=== PATIENT | female | born 1950 | race Caucasian/White ===

== ENCOUNTER 2018-04-30 14:43 | Observation (INO) ==
[2018-04-30] MEDS ORDERED: Aspirin 81 MG TAB.CHEW PO ONE (14:48)
--- NOTE | 2018-04-30 14:54 | Emergency Department Note ---
Disposition Clinical Impression: Hx of breast cancer, Hypocalcemia Chest pain Qualifiers: Chest pain type: unspecified Qualified Code(s): R07.9 - Chest pain, unspecified Disposition: Admitted As Inpatient Condition: Good Referrals: Dane Ybarra [Primary Care Provider] - Forms: ED Satisfaction Letter Time of Disposition: 17:10 General Adult HPI - General Stated complaint: chest pain Time Seen by Provider: 04/30/18 14:47 Source: patient, EMS Mode of arrival: EMS Limitations: no limitations Nursing Notes Reviewed: Yes Vital Signs Reviewed: Yes - History of Present Illness HPI Narrative: Patient is a 67-year-old female that presents the emergency department for chest pain. Patient states that it began while she was sitting in a car waiting for her to be seen at the urgent care at [place]. Patient states that she gets this from time to time but today seemed worse than normal. Patient states that the pain was sharp in the right chest underneath her right breast. Patient denied any radiation of the pain. Patient states that she did not have any nausea or diaphoresis. Patient states that she had increased pain when she would take a breath but does not have any associated shortness of breath at this time. Patient states that yesterday she was diagnosed with a pulmonary nodule in the right lung does have a history of lung cancer. He states that she has been having a mild cough without any sputum production. Patient denies being febrile. Patient states that she has never had a cardiac catheterization or any heart issues in the past but has had a stress test many years ago but is unclear what the results of that stress test were. - Related Data Allergies Allergy/AdvReac Type Severity Reaction Status Date / Time adhesive tape Allergy Rash Verified 04/30/18 15:00 Iodinated Contrast- Oral and Allergy Rash Verified 04/30/18 15:00 IV Dye All systems ED: reviewed and negative except as stated. Constitutional: Denies: fever Cardiovascular: Reports: chest pain Respiratory: Reports: cough. Denies: dyspnea, sputum production Gastrointestinal: Denies: abdominal pain, nausea, vomiting Physical Exam - General Limitations: no limitations General appearance: alert, in no apparent distress - Head Head exam: atraumatic, normocephalic - Eye Eye exam: Present: normal appearance, EOMI - Neck Neck exam: Present: normal inspection, full ROM, trachea midline - Respiratory Respiratory exam: Present: normal lung sounds bilaterally. Absent: respiratory distress, wheezes - Cardiovascular Cardiovascular exam: Present: regular rate, normal rhythm, normal heart sounds, +S1, +S2 - Abdominal Exam Abdominal exam: Present: soft, Non-Tender, normal bowel sounds - Neurological Exam Neurological exam: Present: alert, oriented X3 - Psychiatric Psychiatric exam: Present: normal affect, normal mood - Skin Skin exam: Present: warm, dry, intact Course Vital Signs Temperature 97.9 F 04/30/18 14:46 Pulse Rate 68 04/30/18 14:46 Respiratory Rate 17 04/30/18 14:46 Blood Pressure 139/86 04/30/18 14:46 O2 Sat by Pulse Oximetry 100 04/30/18 14:46 Temperature 97.9 F 04/30/18 14:46 Pulse Rate 63 04/30/18 14:51 Respiratory Rate 17 04/30/18 14:51 Blood Pressure 139/86 04/30/18 14:51 O2 Sat by Pulse Oximetry 98 04/30/18 14:51 Oxygen Delivery Oxygen Delivery Room Air Medical Decision Making - [facility] Narrative Medical decision making narrative: Due the patient's into the emergency department with reports of chest pain was sudden in onset to the right side of the chest and is pleuritic there is concern for possible pulmonary or cardiac involvement. Basic laboratory testing chest x-ray and EKG will be obtained. Patient's laboratory testing is relatively unremarkable. Patient did have a mildly low calcium of 7.5. Patient be given 1 g of calcium gluconate. The remainder of her laboratory testing is relatively unremarkable. Her chest x-ray did not show any acute croup ulnar process. EKG did not show any acute ischemic changes. Patient did receive 324 mg of aspirin here in the emergency department and was chest pain-free upon her arrival. Patient has no evidence of a STEMI or elevation in his troponin to suggest acute coronary syndrome however due to the patient's acute onset of her symptoms troponin would likely not be elevated at this time so she will need to be admitted to the hospital for ACS rule out. Patient has been stable throughout here time here in the emergency department and has not had any signs of distress. Patient will admitted to the hospital at this time. I called and spoke with the admitted hospitalist Dr. Martins and he has accepted the patient to their service. - Medical Records Medical records reviewed: Yes I reviewed the patient's medical records. - Lab Data Lab results reviewed: Yes I reviewed the patient's lab results. Result diagrams: 04/30/18 15:06 04/30/18 15:06 Lab Results 04/30/18 04/30/18 04/30/18 Range/Units 15:06 15:06 15:06 WBC 5.3 (4.3-11.1) K/mcL RBC 4.57 (3.82-4.97) M/mcL Hgb 13.7 (11.5-15.4) g/dL Hct 42.5 (35.3-44.9) % MCV 93.0 (83.0-100.0) fL MCH 30.0 (28.0-33.3) pg MCHC 32.2 (31.6-35.5) g/dL RDW 13.2 (11.5-14.5) % Plt Count 142 (140-400) K/mcL MPV 12.3 (9.4-12.4) fL Immature Gran % 0.2 (0-4) % Seg Neutrophils % 57.4 % Lymphocytes % 26.9 % Monocytes % 8.7 % Eosinophils % 5.7 % Basophils % 1.1 % Neutrophils # 3.0 (1.6-8.9) K/mcL Lymphocytes # 1.4 (0.6-4.6) K/mcL Monocytes # 0.5 (0.0-1.3) K/mcL Eosinophils # 0.3 (0.0-0.6) K/mcL Basophils # 0.1 (0.0-0.2) K/mcL PT 10.6 (9.4-12.1) Seconds INR 0.9 APTT 31.4 (26.0-36.0) Seconds D-Dimer 490 (0-500) ng/mLFEU Sodium (136-145) mEq/L Potassium (3.5-5.1) mEq/L Chloride (98-107) mEq/L Carbon Dioxide (23-29) mEq/L BUN (8-23) mg/dL Creatinine (0.60-1.20) mg/dL Est GFR ( Amer) (> 60) Est GFR (Non-Af Amer) (> 60) BUN/Creatinine Ratio (6-26) Glucose (70-105) mg/dL Calculated Osmolality (280-300) Calcium (8.6-10.3) mg/dL Troponin I (< 0.04) ng/mL B-Natriuretic Peptide 98 (Less than 100) pg/mL 04/30/18 Range/Units 15:06 WBC (4.3-11.1) K/mcL RBC (3.82-4.97) M/mcL Hgb (11.5-15.4) g/dL Hct (35.3-44.9) % MCV (83.0-100.0) fL MCH (28.0-33.3) pg MCHC (31.6-35.5) g/dL RDW (11.5-14.5) % Plt Count (140-400) K/mcL MPV (9.4-12.4) fL Immature Gran % (0-4) % Seg Neutrophils % % Lymphocytes % % Monocytes % % Eosinophils % % Basophils % % Neutrophils # (1.6-8.9) K/mcL Lymphocytes # (0.6-4.6) K/mcL Monocytes # (0.0-1.3) K/mcL Eosinophils # (0.0-0.6) K/mcL Basophils # (0.0-0.2) K/mcL PT (9.4-12.1) Seconds INR APTT (26.0-36.0) Seconds D-Dimer (0-500) ng/mLFEU Sodium 141 (136-145) mEq/L Potassium 4.4 (3.5-5.1) mEq/L Chloride 109 H (98-107) mEq/L Carbon Dioxide 22 L (23-29) mEq/L BUN 21 (8-23) mg/dL Creatinine 0.88 (0.60-1.20) mg/dL Est GFR ( Amer) > 60 (> 60) Est GFR (Non-Af Amer) > 60 (> 60) BUN/Creatinine Ratio 24 (6-26) Glucose 90 (70-105) mg/dL Calculated Osmolality 295 (280-300) Calcium 7.5 L (8.6-10.3) mg/dL Troponin I < 0.03 (< 0.04) ng/mL B-Natriuretic Peptide (Less than 100) pg/mL - Radiology Data Radiology results reviewed: Yes I reviewed the patient's radiology results. Chest X-Ray 04/30/18 14:48 IMPRESSION: No acute cardiopulmonary findings. D/ / Jarvis Francois / Jarvis Francois Interpreting Provider: Jarvis Francois - EKG Data EKG #1 EKG attestation: Yes I reviewed and interpreted this EKG. EKG results narrative: EKG shows a sinus rhythm rate of 61 bpm, MI interval of 138, QRS duration of 89, QTC of 411. There is no evidence of STEMI on EKG. There is no previous EKG for comparison. Attestation Statement - Attestation Attestation: I, Redd Dubon DO, examined this patient [id number] and my medical decision-making was reviewed with Dr. Salvatore Grubbs, Resident Physician. I agree with the documented findings, disposition and treatment plan as described except to the extent set forth below. Please see my progress notes for details.
--- NOTE | 2018-04-30 15:43 | Emergency Department Note ---
Disposition Clinical Impression: Hx of breast cancer Chest pain Qualifiers: Chest pain type: unspecified Qualified Code(s): R07.9 - Chest pain, unspecified Disposition: Admitted As Inpatient Condition: Fair Referrals: Dane Ybarra [Advanced Practice Nurse] - Forms: ED Satisfaction Letter Time of Disposition: 17:10 General Adult HPI - General Chief complaint: ED Chest Pain Stated complaint: chest pain Time Seen by Provider: 04/30/18 14:47 Source: patient, EMS Mode of arrival: EMS Limitations: no limitations - History of Present Illness Pain Scale: 0 - Related Data Allergies Allergy/AdvReac Type Severity Reaction Status Date / Time adhesive tape Allergy Rash Verified 04/30/18 15:00 Iodinated Contrast- Oral and Allergy Rash Verified 04/30/18 15:00 IV Dye Constitutional: Denies: fever Cardiovascular: Reports: chest pain Respiratory: Reports: cough. Denies: dyspnea, sputum production Gastrointestinal: Denies: abdominal pain, nausea, vomiting Past Medical History - Past Medical History Medical history: Reports: hyperlipidemia, hypertension Psychiatric history: Reports: anxiety - Social History Smoking Status: Never smoker Smokeless Tobacco Status: No Alcohol use: Reports: none Drug use: Reports: none Physical Exam - General Limitations: no limitations General appearance: alert, in no apparent distress Course Vital Signs Temperature 97.9 F 04/30/18 14:46 Pulse Rate 68 04/30/18 14:46 Respiratory Rate 17 04/30/18 14:46 Blood Pressure 139/86 04/30/18 14:46 O2 Sat by Pulse Oximetry 100 04/30/18 14:46 Temperature 97.9 F 04/30/18 14:46 Pulse Rate 63 04/30/18 14:51 Respiratory Rate 17 04/30/18 14:51 Blood Pressure 139/86 04/30/18 14:51 O2 Sat by Pulse Oximetry 98 04/30/18 14:51 Oxygen Delivery Oxygen Delivery Room Air Medical Decision Making - Lab Data Result diagrams: 04/30/18 15:06 04/30/18 15:06 Lab Results 04/30/18 04/30/18 04/30/18 Range/Units 15:06 15:06 15:06 WBC 5.3 (4.3-11.1) K/mcL RBC 4.57 (3.82-4.97) M/mcL Hgb 13.7 (11.5-15.4) g/dL Hct 42.5 (35.3-44.9) % MCV 93.0 (83.0-100.0) fL MCH 30.0 (28.0-33.3) pg MCHC 32.2 (31.6-35.5) g/dL RDW 13.2 (11.5-14.5) % Plt Count 142 (140-400) K/mcL MPV 12.3 (9.4-12.4) fL Immature Gran % 0.2 (0-4) % Seg Neutrophils % 57.4 % Lymphocytes % 26.9 % Monocytes % 8.7 % Eosinophils % 5.7 % Basophils % 1.1 % Neutrophils # 3.0 (1.6-8.9) K/mcL Lymphocytes # 1.4 (0.6-4.6) K/mcL Monocytes # 0.5 (0.0-1.3) K/mcL Eosinophils # 0.3 (0.0-0.6) K/mcL Basophils # 0.1 (0.0-0.2) K/mcL PT 10.6 (9.4-12.1) Seconds INR 0.9 APTT 31.4 (26.0-36.0) Seconds D-Dimer 490 (0-500) ng/mLFEU Sodium (136-145) mEq/L Potassium (3.5-5.1) mEq/L Chloride (98-107) mEq/L Carbon Dioxide (23-29) mEq/L BUN (8-23) mg/dL Creatinine (0.60-1.20) mg/dL Est GFR ( Amer) (> 60) Est GFR (Non-Af Amer) (> 60) BUN/Creatinine Ratio (6-26) Glucose (70-105) mg/dL Calculated Osmolality (280-300) Calcium (8.6-10.3) mg/dL Troponin I (< 0.04) ng/mL B-Natriuretic Peptide 98 (Less than 100) pg/mL 04/30/18 Range/Units 15:06 WBC (4.3-11.1) K/mcL RBC (3.82-4.97) M/mcL Hgb (11.5-15.4) g/dL Hct (35.3-44.9) % MCV (83.0-100.0) fL MCH (28.0-33.3) pg MCHC (31.6-35.5) g/dL RDW (11.5-14.5) % Plt Count (140-400) K/mcL MPV (9.4-12.4) fL Immature Gran % (0-4) % Seg Neutrophils % % Lymphocytes % % Monocytes % % Eosinophils % % Basophils % % Neutrophils # (1.6-8.9) K/mcL Lymphocytes # (0.6-4.6) K/mcL Monocytes # (0.0-1.3) K/mcL Eosinophils # (0.0-0.6) K/mcL Basophils # (0.0-0.2) K/mcL PT (9.4-12.1) Seconds INR APTT (26.0-36.0) Seconds D-Dimer (0-500) ng/mLFEU Sodium 141 (136-145) mEq/L Potassium 4.4 (3.5-5.1) mEq/L Chloride 109 H (98-107) mEq/L Carbon Dioxide 22 L (23-29) mEq/L BUN 21 (8-23) mg/dL Creatinine 0.88 (0.60-1.20) mg/dL Est GFR ( Amer) > 60 (> 60) Est GFR (Non-Af Amer) > 60 (> 60) BUN/Creatinine Ratio 24 (6-26) Glucose 90 (70-105) mg/dL Calculated Osmolality 295 (280-300) Calcium 7.5 L (8.6-10.3) mg/dL Troponin I < 0.03 (< 0.04) ng/mL B-Natriuretic Peptide (Less than 100) pg/mL Attestation Statement - Attestation Attestation: I, Redd Dubon DO, examined this patient [id number] and my medical decision-making was reviewed with Dr. Salvatore Grubbs, Resident Physician. I agree with the documented findings, disposition and treatment plan as described except to the extent set forth below. Please see my progress notes for details. 67-year-old female seen and examined the time of arrival. Presents emergency room for the [facility] where she was seeing another patient in the hospital setting. She went down the hallway with severe chest pain. EMS was called. They transported immediately to our facility because she is not a . Patient had chest pain when EMS initially evaluated her. Without any intervention, the patient had complete resolution of her symptoms. She does have a history of breast cancer. Denies any falls trauma or injury. Denies any cardiac history. Currently denying chest pain shortness of breath headache v ision changes nausea vomiting or diarrhea here in the emergency department. Vital signs otherwise stable. Patient is alert she is oriented and speaking in full sentences. Lungs are clear heart is regular abdomen is soft nontender nondistended with no guarding no rigidity and no peritoneal symptoms at this time. Patient will have cardiac evaluation completed here today with EKG CBC chemistry troponin and BNP and d-dimer secondary to her cancer history. Chest x-ray fluids and aspirin will be given as needed. Disposition will most likely be admission secondary to the presenting symptoms and complaints. Patient is otherwise stable. She is describing no pain at this point and does not require any emergent intervention or medical management. See detailed documentation of the physical exam, medical intervention, medical decision-making and disposition in the resident physician's note. No critical care applied to the patient's treatment course at this time. 1700 Patient's d-dimer is negative. Labs are unremarkable including a troponin. Patient has not had any chest pain while here in the emergency department. Patient is otherwise clinical stable and resting comfortably in the bed. She will be admitted for ACS rule out at this time secondary to risk factors as well as presenting symptoms and pain. Patient was discussed with the hospitalist Dr. Martins. He had no other recommendations or concerns. Aspirin has been provided and the patient is otherwise in no distress. We will continue monitoring in emergency room until admission process is completed
[2018-04-30 15:50] LABS: Basophils # 0.1 K/mcL (0.0-0.2); Basophils % 1.1 %; Eosinophils # 0.3 K/mcL (0.0-0.6); Eosinophils % 5.7 %; Hematocrit 42.5 % (35.3-44.9); Hemoglobin 13.7 g/dL (11.5-15.4); Immature Granulocytes % 0.2 % (0-4); Lymphocytes # 1.4 K/mcL (0.6-4.6); Lymphocytes % 26.9 %; Mean Corpuscular HGB Conc 32.2 g/dL (31.6-35.5); Mean Platelet Volume 12.3 fL (9.4-12.4); Monocytes # 0.5 K/mcL (0.0-1.3); Monocytes % 8.7 %; Platelet Count 142 K/mcL (140-400); Red Blood Count 4.57 M/mcL (3.82-4.97); Red Cell Distribution Width 13.2 % (11.5-14.5); Segmented Neutrophils % 57.4 %
[2018-04-30 15:58] LABS: INR 0.9; Prothrombin Time 10.6 Seconds (9.4-12.1)
[2018-04-30 16:00] LABS: Activated Partial Thrombo Time 31.4 Seconds (26.0-36.0)
[2018-04-30 16:34] LABS: BUN/Creatinine Ratio 24 (6-26); Blood Urea Nitrogen 21 mg/dL (8-23); Calcium 7.5 mg/dL (8.6-10.3); Carbon Dioxide 22 mEq/L (23-29); Chloride 109 mEq/L (98-107); Glucose 90 mg/dL (70-105); Osmolality,Calculated 295 (280-300); Potassium 4.4 mEq/L (3.5-5.1); Sodium 141 mEq/L (136-145); eGFR For Non-African Americans > 60 (> 60)
[2018-04-30 16:35] LABS: Troponin I < 0.03 ng/mL (< 0.04)
[2018-04-30 17:02] LABS: Bilirubin,Urine Negative (Negative); Blood,Urine Negative (Negative); Clarity,Urine Clear (Clear); Color,Urine Yellow (Yellow); Glucose,Urine (UA) Normal (Normal); Ketones,Urine Negative (Negative); Leukocyte Esterase,Urine Negative (Negative); Nitrite,Urine Negative (Negative); PH,Urine 6.5 pH Units (5.0-8.0); Protein,Urine Trace mg/dL (Neg-Trace); Specific Gravity,Urine 1.019 (1.010-1.025); Urobilinogen,Urine Normal (Normal)
[2018-04-30 17:03] LABS: Bacteria,Urine None Seen per hpf (None-Few); Hyaline Casts,Urine None Seen per lpf (None-Few); Squamous Epithelial Cell,Urine Many per lpf (None-Few); WBC,Urine 0-3 per hpf (0-3)
[2018-04-30] MEDS ORDERED: traMADol 50 MG TABLET PO PRN (17:24)
[2018-04-30] MEDS ORDERED: Acetaminophen 325 MG TABLET PO PRN (17:24)
[2018-04-30] MEDS ORDERED: Naloxone 0.4 MG/ML INJ IVP PRN (17:24)
[2018-04-30] MEDS ORDERED: Nitroglycerin 0.4 MG TAB.SUBL SL PRN (17:26)
--- NOTE | 2018-04-30 17:31 | Internal Med History&Physical ---
Date of Encounter: 04/30/18 Time of Encounter: 17:29 Internal Medicine - H&P: HPI Admitted From: Home Plans for Post Hospital Care: Home History of present illness: Patient is a 67-year-old female that presents the emergency department for chest pain. Patient states that it began while she was sitting in a car waiting for her to be seen at the urgent care at [place]. Patient states that she gets this from time to time but today seemed worse than normal. Patient states that the pain was sharp in the right chest underneath her right breast. Patient denied any radiation of the pain. Patient states that she did not have any nausea or diaphoresis. Patient states that she had increased pain when she would take a breath but does not have any associated shortness of breath at this time. Patient states that yesterday she was diagnosed with a pulmonary nodule in the right lung does have a history of lung cancer. He states that she has been having a mild cough without any sputum production. Patient denies being febrile. Patient states that she has never had a cardiac catheterization or any heart issues in the past but had a stress test many years ago with a normal result. At the ED, patient vital signs were stable, labs were unremarkable including troponin, chest x-ray no acute findings, EKG no acute ST-T change. Patient will be admitted for observation overnight. Past Med Surg Social Fam HX - Past Medical History Medical history: hyperlipidemia, hypertension Additional medical history: Right Lung Nodule. Pre diabetes Psychiatric history: anxiety - Past Surgical History Additional surgical history: D and C,Hysterectomy - Social History Smoking Status: Never smoker Smokeless Tobacco Status: No Alcohol use: none Drug use: none Internal Medicine - H&P: Meds Allergy/AdvReac Type Severity Reaction Status Date / Time adhesive tape Allergy Rash Verified 04/30/18 15:00 Iodinated Contrast- Oral and Allergy Rash Verified 04/30/18 15:00 IV Dye All Systems PM: A 10-system review of systems was performed and is negative for pertinent findings except as documented above in the HPI. Review of systems: REVIEW OF SYSTEMS: CONSTITUTIONAL: No weight loss, fever, chills, weakness or fatigue. HEENT: Eyes: No visual loss, blurred vision, double vision or yellow sclerae. Ears, Nose, Throat: No hearing loss, sneezing, congestion, runny nose or sore throat. SKIN: No rash or itching. CARDIOVASCULAR: see HPI. RESPIRATORY: No shortness of breath, cough or sputum. GASTROINTESTINAL: No anorexia, nausea, vomiting or diarrhea. No abdominal pain or blood. GENITOURINARY: No dysuria, urgency, or frequency. NEUROLOGICAL: No headache, dizziness, syncope, paralysis, ataxia, numbness or tingling in the extremities. No change in bowel or bladder control. MUSCULOSKELETAL: No muscle, back pain, joint pain or stiffness. HEMATOLOGIC: No anemia, bleeding or bruising. LYMPHATICS: No enlarged nodes. No history of splenectomy. PSYCHIATRIC: No history of depression or anxiety. ENDOCRINOLOGIC: No reports of sweating, cold or heat intolerance. No polyuria or polydipsia. - Constitutional Vitals: Temp Pulse Resp BP Pulse Ox 97.9 F 63 17 139/86 98 04/30/18 14:46 04/30/18 14:51 04/30/18 14:51 04/30/18 14:51 04/30/18 14:51 General appearance: Present: cooperative, A&O X 3, answers questions appropriately Exam: PHYSICAL EXAMINATION: GENERAL APPEARANCE: The patient is alert, oriented and in no acute distress. HEENT: Head is normocephalic. The sinuses are nontender. Pupils are equal and reactive. The nares are patent. Oropharynx clear without lesions. NECK: Supple without lymphadenopathy. HEART: Regular rate and rhythm. LUNGS: No crackles or wheezes are heard. ABDOMEN: Soft, nontender, nondistended with good bowel sounds heard. Inguinal area is normal. EXTREMITIES: Without cyanosis, clubbing or edema. NEUROLOGICAL: Gross nonfocal. SKIN: Warm and dry without any rash. Internal Med - H&P Results - Labs CBC & Chem 7: 04/30/18 15:06 04/30/18 15:06 Labs: Short CBC 04/30/18 Range/Units 15:06 WBC 5.3 (4.3-11.1) K/mcL Hgb 13.7 (11.5-15.4) g/dL Hct 42.5 (35.3-44.9) % Plt Count 142 (140-400) K/mcL Neutrophils # 3.0 (1.6-8.9) K/mcL BMP 04/30/18 15:06 Sodium 141 Potassium 4.4 Chloride 109 H Carbon Dioxide 22 L BUN 21 Creatinine 0.88 Glucose 90 Calcium 7.5 L Cardiac Enzymes 04/30/18 Range/Units 15:06 Troponin I < 0.03 (< 0.04) ng/mL Urine 04/30/18 Range/Units 16:52 Urine Color Yellow (Yellow) Urine Clarity Clear (Clear) Urine pH 6.5 (5.0-8.0) pH Units Ur Specific [place] 1.019 (1.010-1.025) Urine Protein Trace (Neg-Trace) mg/dL Urine Glucose (UA) Normal (Normal) mg/dL - Impressions ITS Impressions Chest X-Ray 04/30/18 14:48 IMPRESSION: No acute cardiopulmonary findings. D/ / Jarvis Francois / Jarvis Francois Interpreting Provider: Jarvis Francois - Assessment and plan (1) Chest pain Current Visit: Yes Status: Acute Assessment and plan: 67 year old female with CV risk factors including HTN and obesity presented with right sided chest pain, it is exertional. No radiation, and non-pleuritic. It is non-typical chest pain, however, due to risk factors, will admit and workup for ACS. Cycle troponin, tele monitoring, EKG as needed. Stress test in am. Qualifiers: Chest pain type: unspecified Qualified Code(s): R07.9 - Chest pain, unspecified (2) HTN (hypertension) Current Visit: No Status: Chronic Assessment and plan: BP controlled, continue home meds. Qualifiers: Hypertension type: essential hypertension Qualified Code(s): I10 - Essential (primary) hypertension (3) Depression Current Visit: No Status: Chronic Assessment and plan: Mood stable, no suicidal ideation. continue home meds. Qualifiers: Depression Type: major depressive disorder Active/Remission status: remission status unspecified Qualified Code(s): F32.9 - Major depressive disorder, single episode, unspecified (4) Lung nodule Current Visit: No Status: Chronic Assessment and plan: outpatient workup, already scheduled. (5) Hx of breast cancer Current Visit: No Status: Chronic Assessment and plan: f/u as outpt. (6) DVT prophylaxis Current Visit: Yes Status: Acute Assessment and plan: heparin sq. - Time Spent With Patient Total time spent is greater than 50% in coordination of care (as documented) at patient's floor/unit and/or counseling patient: Greater than 35 minutes
[2018-04-30] MEDS: traZODone 50 MG TABLET PO SCH (20:39)
[2018-04-30] MEDS: *HR* Heparin 5,000 UNIT/ML VIAL SQ SCH (20:39)
[2018-05-01 05:04] LABS: Basophils % 0.8 %; Eosinophils # 0.3 K/mcL (0.0-0.6); Eosinophils % 5.7 %; Hematocrit 39.7 % (35.3-44.9); Hemoglobin 12.8 g/dL (11.5-15.4); Immature Granulocytes % 0.2 % (0-4); Lymphocytes # 1.8 K/mcL (0.6-4.6); Lymphocytes % 34.1 %; Mean Corpuscular HGB Conc 32.2 g/dL (31.6-35.5); Mean Corpuscular Hemoglobin 29.7 pg (28.0-33.3); Mean Corpuscular Volume 92.1 fL (83.0-100.0); Mean Platelet Volume 12.1 fL (9.4-12.4); Monocytes # 0.5 K/mcL (0.0-1.3); Neutrophils # 2.6 K/mcL (1.6-8.9); Platelet Count 118 K/mcL (140-400); Red Blood Count 4.31 M/mcL (3.82-4.97); Red Cell Distribution Width 13.1 % (11.5-14.5); Segmented Neutrophils % 49.2 %
[2018-05-01 05:27] LABS: BUN/Creatinine Ratio 22 (6-26); Blood Urea Nitrogen 21 mg/dL (8-23); Carbon Dioxide 27 mEq/L (23-29); Chloride 109 mEq/L (98-107); Chol/HDL Ratio 2.6 (0-4.9); Cholesterol 145 mg/dL (< 200); Glucose 95 mg/dL (70-105); HDL Cholesterol 56 mg/dL (40-59); LDL Cholesterol,Calculated 72 mg/dL (0-99); Osmolality,Calculated 295 (280-300); Potassium 4.1 mEq/L (3.5-5.1); Sodium 141 mEq/L (136-145); Triglycerides 83 mg/dL (< 150); eGFR For Non-African Americans 58 (> 60)
[2018-05-01] MEDS: *HR* Heparin 5,000 UNIT/ML VIAL SQ SCH ×2 (05:55→17:47)
[2018-05-01] MEDS ORDERED: Regadenoson 0.4 MG/5 ML SYRINGE IVP ONE (06:25)
[2018-05-01] MEDS ORDERED: Cholecalciferol (D-3) 1,000 UNIT TABLET PO SCH (09:00)
[2018-05-01] MEDS ORDERED: Metoprolol XL (24 HR) Succ 25 MG TAB.ER.24H PO SCH (09:00)
--- NOTE | 2018-05-01 09:27 | Internal Med Progress Note ---
Hospitalist Progress Note - Encounter Date of Encounter: 05/01/18 Time of Encounter: 09:24 - Subjective Interval History: Admitted for chest pain rule out. Currently resting comfortably in bed denies any chest pain at this time. Does not appear to be in any distress. - Exam Vitals: Temp Pulse Resp BP Pulse Ox 97.3 F L 65 16 128/76 96 05/01/18 07:13 05/01/18 07:13 05/01/18 07:13 05/01/18 07:13 05/01/18 07:13 Exam: PHYSICAL EXAMINATION: GENERAL APPEARANCE: A and O 3, NAD HEENT: Head is normocephalic. The sinuses are nontender. EOMI, PERRLA The nares are patent. Oropharynx clear without lesions. NECK: Supple without lymphadenopathy. HEART: Regular rate and rhythm, S1, S2 no murmurs rubs or gallops. LUNGS: No crackles or wheezes are heard. ABDOMEN: Soft, nontender, nondistended with good bowel sounds heard. Inguinal area is normal. EXTREMITIES: Without cyanosis, clubbing or edema. NEUROLOGICAL: Grossly nonfocal. SKIN: Warm and dry without any rash. - Assessment and Plan (1) Chest pain Current Visit: Yes Status: Acute Assessment and Plan: 67 year old female with CV risk factors including HTN and obesity Presented with atypical Rt sided pain below breast without radiation, shortness of breath, nausea, diaphoresis EKG without ST-T wave changes concerning for ischemia Troponin is negative 05/01--was chest pain-free by the time of arrival to the ED. Remains chest pain-free at this time. She was reporting atypical chest pain with pain located in the right chest below the right breast. She will be a 2 day stress. He underwent stress test this morning, results pending. Continue with telemetry. (2) Hx of breast cancer Current Visit: No Status: Chronic Assessment and Plan: f/u as outpt with oncologist per regular schedule (3) HTN (hypertension) Current Visit: No Status: Chronic Assessment and Plan: BP controlled Continue to monitor closely Continue home anti-HTN meds (4) Depression Current Visit: No Status: Chronic Assessment and Plan: Continue antidepressant (5) Lung nodule Current Visit: No Status: Chronic Assessment and Plan: Is having close outpatient follow-up at [facility] With history of cancer encouraged to continue close follow-up (6) DVT prophylaxis Current Visit: Yes Status: Acute Assessment and Plan: Continue SC Heparin - Time Spent with Patient Total time spent is greater than 50% in coordination of care (as documented) at patient's floor/unit and/or counseling patient: less than 15 minutes Plan of Care Discussed with: patient Internal Medicine: Result - Labs CBC & Chem 7: 05/01/18 03:44 05/01/18 03:44 Labs: Short CBC 04/30/18 05/01/18 Range/Units 15:06 03:44 WBC 5.3 5.3 (4.3-11.1) K/mcL Hgb 13.7 12.8 (11.5-15.4) g/dL Hct 42.5 39.7 (35.3-44.9) % Plt Count 142 118 L (140-400) K/mcL Neutrophils # 3.0 2.6 (1.6-8.9) K/mcL BMP 04/30/18 05/01/18 15:06 03:44 Sodium 141 141 Potassium 4.4 4.1 Chloride 109 H 109 H Carbon Dioxide 22 L 27 BUN 21 21 Creatinine 0.88 0.96 Glucose 90 95 Calcium 7.5 L 9.0 Cardiac Enzymes 04/30/18 04/30/18 05/01/18 Range/Units 15:06 22:08 03:44 Troponin I < 0.03 < 0.03 < 0.03 (< 0.04) ng/mL Urine 04/30/18 Range/Units 16:52 Urine Color Yellow (Yellow) Urine Clarity Clear (Clear) Urine pH 6.5 (5.0-8.0) pH Units Ur Specific [place] 1.019 (1.010-1.025) Urine Protein Trace (Neg-Trace) mg/dL Urine Glucose (UA) Normal (Normal) mg/dL - ABG Interpretation ABG results: PT/INR, D-dimer PT 10.6 Seconds (9.4-12.1) 04/30/18 15:06 D-Dimer 490 ng/mLFEU (0-500) 04/30/18 15:06 - Impressions Impressions Chest X-Ray 04/30/18 14:48 IMPRESSION: No acute cardiopulmonary findings. D/ / Jarvis Francois / Jarvis Francois Interpreting Provider: Jarvis Francois Consult Discharge Plan - Plan Referrals: Dane Ybarra [Primary Care Provider] - 05/07/18 11:15 am (1) Chest pain Qualifiers: Chest pain type: unspecified Qualified Code(s): R07.9 - Chest pain, unspecified (3) HTN (hypertension) Qualifiers: Hypertension type: essential hypertension Qualified Code(s): I10 - Essential (primary) hypertension (4) Depression Qualifiers: Depression Type: major depressive disorder Active/Remission status: remission status unspecified Qualified Code(s): F32.9 - Major depressive disorder, single episode, unspecified
--- NOTE | 2018-05-01 14:32 | Electrocardiograph Report ---
[place] [id number] Test Date: 2018-04-30 Pat Name: Awilda Patel Department: EXAM3 Room: 3B45 Gender: F Director Power: : [id number] Requested By: Redd Dubon Order Number: [id number] Reading MD: Travon Pierre Measurements Intervals [place] Rate: 61 P: 47 TN: 138 QRS: 46 QRSD: 89 T: 26 QT: 408 QTc: 411 Interpretive Statements Sinus rhythm Abnormal R-wave progression, early transition Electronically Signed On 05-01-2018 14:30:39 EST by Travon Pierre
[2018-05-01] MEDS: traZODone 50 MG TABLET PO SCH (21:15)
[2018-05-01] MEDS: Cholecalciferol (D-3) 1,000 UNIT TABLET PO SCH (21:16)
[2018-05-01] MEDS: Metoprolol XL (24 HR) Succ 25 MG TAB.ER.24H PO SCH (21:16)
[2018-05-02] MEDS: *HR* Heparin 5,000 UNIT/ML VIAL SQ SCH ×2 (06:16→17:55)
--- NOTE | 2018-05-02 10:11 | Internal Med Progress Note ---
Hospitalist Progress Note - Encounter Date of Encounter: 05/02/18 Time of Encounter: 10:09 - Subjective Interval History: Admitted for chest pain rule out. Currently resting comfortably in bed denies any chest pain at this time. She reports that she has not had any return of chest pain throughout stay. She currently does not appear to be in any distre ss. She has undergone the second part of a 2 day stress test this morning and results are pending. - Exam Vitals: Temp Pulse Resp BP Pulse Ox 97.7 F 68 16 116/73 91 05/02/18 07:35 05/02/18 07:35 05/02/18 07:35 05/02/18 07:35 05/02/18 07:35 Exam: PHYSICAL EXAMINATION: GENERAL APPEARANCE: A and O 3, NAD HEENT: Head is normocephalic and atraumatic, EOMI, PERRLA NECK: Supple without lymphadenopathy. HEART: Regular rate and rhythm, S1, S2 no murmurs rubs or gallops. LUNGS: CTA AP and L ABDOMEN: Soft, nontender, nondistended, NABS EXTREMITIES: Without cyanosis, clubbing or edema. NEUROLOGICAL: Grossly nonfocal. SKIN: Warm and dry without any rash. - Assessment and Plan (1) Chest pain Current Visit: Yes Status: Resolved Assessment and Plan: 05/02--chest pain is resolved and has not returned throughout stay. No events on telemetry. As far workup is unremarkable with negative troponins and EKG without ST-T wave changes concerning for ischemia. If second part of stress test is without ischemia patient we discharge this afternoon with follow-up with PCP. (2) Hx of breast cancer Current Visit: No Status: Chronic Assessment and Plan: f/u as outpt with oncologist per regular schedule (3) HTN (hypertension) Current Visit: No Status: Chronic Assessment and Plan: BP controlled Continue to monitor closely Continue home anti-HTN meds (4) Depression Current Visit: No Status: Chronic Assessment and Plan: Continue antidepressant (5) Lung nodule Current Visit: No Status: Chronic Assessment and Plan: Is having close outpatient follow-up at [facility] With history of cancer encouraged to continue close follow-up (6) DVT prophylaxis Current Visit: Yes Status: Acute Assessment and Plan: Continue SC Heparin - Time Spent with Patient Total time spent is greater than 50% in coordination of care (as documented) at patient's floor/unit and/or counseling patient: less than 15 minutes Plan of Care Discussed with: patient Internal Medicine: Result - Labs CBC & Chem 7: 05/01/18 03:44 05/01/18 03:44 - ABG Interpretation ABG results: PT/INR, D-dimer PT 10.6 Seconds (9.4-12.1) 04/30/18 15:06 D-Dimer 490 ng/mLFEU (0-500) 04/30/18 15:06 - Impressions Impressions Chest X-Ray 04/30/18 14:48 IMPRESSION: No acute cardiopulmonary findings. D/ / Jarvis Francois / Jarvis Francois Interpreting Provider: Jarvis Francois Consult Discharge Plan - Plan Referrals: Dane Ybarra [Primary Care Provider] - 05/07/18 11:15 am (1) Chest pain Qualifiers: Chest pain type: unspecified Qualified Code(s): R07.9 - Chest pain, unspecified (3) HTN (hypertension) Qualifiers: Hypertension type: essential hypertension Qualified Code(s): I10 - Essential (primary) hypertension (4) Depression Qualifiers: Depression Type: major depressive disorder Active/Remission status: remission status unspecified Qualified Code(s): F32.9 - Major depressive disorder, single episode, unspecified
[2018-05-02] MEDS: Metoprolol XL (24 HR) Succ 25 MG TAB.ER.24H PO SCH (21:18)
[2018-05-02] MEDS: Cholecalciferol (D-3) 1,000 UNIT TABLET PO SCH (21:18)
[2018-05-02] MEDS: traZODone 50 MG TABLET PO SCH (21:19)
[2018-05-03] MEDS: *HR* Heparin 5,000 UNIT/ML VIAL SQ SCH ×2 (06:02→17:16)
--- NOTE | 2018-05-03 12:12 | Cardiology Consult Note ---
Addendum entered and electronically signed by Emelyn Santana CNP 05/03/18 12:46: IVP dye allergy--"redness, rash." Will pre-medicate this evening and again in AM with prednisone 40 mg daily. Original Note: <Emeyln Santana - Last Filed: 05/03/18 12:28> Date of Encounter: 05/03/18 Time of Encounter: 12:00 Assessment and Plan (1) Chest pain Current Visit: Yes Status: Resolved Patient admitted after episode of chest pain. Atypical features. Troponin negative x3. No acute ST/T wave abnormalities noted on ECG. Reports normal stress test many years ago. Risk factors for CAD include: HTN, HLD, and obesity. Cardiology consulted for abnormal stress test--mild, mid anterior perfusion defect suggestive of reversible ischemia, SDS=2. Recommend [facility]; alternatives, risks, and benefits discussed, she is agreeable to proceed. Continue BB, statin. Will add asa. NPO after MN. Qualifiers: Chest pain type: unspecified Qualified Code(s): R07.9 - Chest pain, unspecified (2) Hx of breast cancer Current Visit: Yes Status: Chronic (3) Lung nodule Current Visit: Yes Status: Chronic Discussion w patient/family: The assessment and plan as outlined above was discussed with the patient and/or family members who expressed understanding and agreement. All questions were answered. Thank you for involving us in the care of your patient. Please call with any questions. History of Present Illness Consult date: 05/02/16 Requesting physician: Loco Gomes Consult reason: Abnormal stress test Chief complaint: Chest pain History of present illness: Ms. Patel is a 67 year old female with PMHx significant of HTN, HLD, anxiety/depression, and breast cancer who presented to the ED with complaints of right sided chest discomfort. She reports mild, similar symptoms for several years. She reports she was waiting in the car while her was at the [place] when she developed non-radiating right sided chest discomfort described as pressure and heaviness. She notes pain lasted for several minutes and resolved without intervention. She was evaluated by EMS at the [place], reports vitals were normal. She was brought to [facility] for further evaluation. Troponin negative x3. No acute ST/T wave abnormalities noted. Cardiology consulted for abnormal stress test. Past Med Surg Social Fam HX - Past Medical History Attestation: Yes The following information was validated with the patient. Source: patient Medical history: hyperlipidemia, hypertension Additional medical history: Right Lung Nodule. Pre diabetes Psychiatric history: anxiety - Past Surgical History Surgical History: breast surgery (lumpectomy), cancer surgery (right sided lumpectomy), cholecystectomy, LINA/BSO Additional surgical history: D and C,Hysterectomy - Social History Smoking Status: Never smoker Smokeless Tobacco Status: No Alcohol use: none Drug use: none - Family History Father Living Status: Cause of : dementia Mother Living Status: Hx Family Cancer: Yes (stomach and liver) Sister Living Status: Still Living Hx Family Cardiac Disorders: Yes (HTN) Medications and Allergies Cholecalciferol (D-3) [Vitamin D] 3,000 unit PO HS 04/30/18 [History] RX: HydrOXYzine 25 mg PO HS 04/30/18 [History] Sertraline [Zoloft] 50 mg PO HS 04/30/18 [History] Metoprolol Tartrate 50 mg PO HS 05/02/18 [History] RX: Clotrimazole/Betameth Dip CRM [Lotrisone CRM] 1 appl TP DAILY PRN 05/02/18 [History] RX: Simvastatin [Zocor] 20 mg PO HS 05/02/18 [History] RX: Trazodone HCl 200 mg PO HS 05/02/18 [History] Allergy/AdvReac Type Severity Reaction Status Date / Time adhesive tape AdvReac See Verified 05/02/18 13:05 Comments Iodinated Contrast- Oral and AdvReac See Verified 05/02/18 13:05 IV Dye Comments All Systems Review: The remainder of the systems were reviewed and are negative - Cardiovascular Cardiovascular: as per HPI Physical Examination Vital Signs, Last 4 Hours Temp Pulse Resp BP Pulse Ox 05/03/18 12:01 97.8 F 62 16 130/83 97 General: Conversant, No Apparent Distress, Other (obese) HEENT: Atraumatic, Normocephaly, Mucus Membranes Moist Neck: No JVD, Normal carotid pulses Cardiac: Reg Rate and Rhythm, Normal S1 and S2, No Murmur Lungs: Normal Breath Sounds, No Wheeze, Rales, Rhonchi Neuro: Alert and responsive, No focal deficits noted Abdomen: Soft, Non-Tender Skin: No rashes noted on visualized skin Musculoskeletal: No Chest Wall Tenderness Extremities: No Clubbing, No Cyanosis, No Edema, Normal Pulses Results 05/01/18 03:44 05/01/18 03:44 Active Medications Acetaminophen (Tylenol) 650 mg PO Q6HR PRN PRN Reason: Mild Pain/Fever Stop: 10/30/18 17:25 Heparin Sodium (Porcine) (Heparin) 5,000 unit SQ Q12HCO NELSY Stop: 10/30/18 18:01 Last Admin: 05/03/18 06:02 Dose: 5,000 unit Hydroxyzine HCl (Hydroxyzine) 10 mg PO HS PRN PRN Reason: Insomnia Stop: 10/30/18 17:29 Last Admin: 05/02/18 21:18 Dose: 10 mg Metoprolol Succinate (Toprol Xl) 25 mg PO HS NELSY Stop: 10/31/18 21:01 Last Admin: 05/02/18 21:18 Dose: 25 mg Naloxone HCl (Narcan) 0.4 mg IVP Q2MIN PRN PRN Reason: SEE COMMENTS Stop: 10/30/18 17:25 Nitroglycerin (Nitroglycerin) 0.4 mg SL Q5MIN PRN PRN Reason: Chest Pain Stop: 10/30/18 17:27 Sertraline HCl (Zoloft) 25 mg PO HS [facility] Stop: 10/31/18 21:01 Last Admin: 05/02/18 21:18 Dose: 25 mg Simvastatin (Zocor) 10 mg PO HS [facility] Stop: 10/31/18 21:01 Last Admin: 05/02/18 21:18 Dose: 10 mg Tramadol HCl (Ultram) 50 mg PO Q6HR PRN PRN Reason: Moderate Pain Stop: 10/30/18 17:25 Trazodone HCl (Trazodone) 200 mg PO HS [facility] Stop: 10/30/18 21:01 Last Admin: 05/02/18 21:19 Dose: 200 mg Vitamin D (Vitamin D) 1,000 unit PO HS [facility] Stop: 10/31/18 21:01 Last Admin: 05/02/18 21:18 Dose: 1,000 unit - Imaging and Cardiology Stress Test: report reviewed Other Results: 12 hour tele: avg HR=63 SR. - EKG Interpretation EKG results cardiology: personally reviewed Consult Discharge Plan - Plan Referrals: Dane Ybarra [Primary Care Provider] - 05/07/18 11:15 am <Thomas Moya - Last Filed: 05/03/18 13:00> Date of Encounter: 05/03/18 - Attending Attestation I have personally performed a face to face evaluation on this patient. I have reviewed and agree with the care plan. History and Exam by me shows: Presents with atypical chest pain. Stress test positive for possible anterior ischemia. Recommend left heart cath. Discussed risks and benefits of left heart cath. She agrees to proceed. Assessment and Plan Discussion w patient/family: The assessment and plan as outlined above was discussed with the patient and/or family members who expressed understanding and agreement. All questions were answered. Thank you for involving us in the care of your patient. Please call with any questions. History of Present Illness History of present illness: Ms. Patel is a 67 year old female All Systems Review: The remainder of the systems were reviewed and are negative Physical Examination Vital Signs, Last 4 Hours Temp Pulse Resp BP Pulse Ox 05/03/18 12:01 97.8 F 62 16 130/83 97 Results 05/01/18 03:44 05/01/18 03:44
--- NOTE | 2018-05-03 12:49 | Internal Med Progress Note ---
Hospitalist Progress Note - Encounter Date of Encounter: 05/03/18 Time of Encounter: 12:47 - Subjective Interval History: Reported an episode of midsternal chest pain described as dull. She does have some mild shortness of breath and dizziness with this as well. - Exam Vitals: Temp Pulse Resp BP Pulse Ox 97.8 F 62 16 130/83 97 05/03/18 12:01 05/03/18 12:01 05/03/18 12:01 05/03/18 12:01 05/03/18 12:01 Exam: PHYSICAL EXAMINATION: GENERAL APPEARANCE: A and O 3, NAD HEENT: Head is normocephalic and atraumatic, EOMI, PERRLA NECK: Supple without lymphadenopathy. HEART: Regular rate and rhythm, S1, S2 no murmurs rubs or gallops. LUNGS: CTA AP and L without wheezes, rales or rhonchi ABDOMEN: Soft, nontender, nondistended, NABS EXTREMITIES: Without cyanosis, clubbing or edema. NEUROLOGICAL: Grossly nonfocal. SKIN: Warm and dry without any rash. - Assessment and Plan (1) Chest pain Current Visit: Yes Status: Resolved Assessment and Plan: 05/02--chest pain is resolved and has not returned throughout stay. No events on telemetry. As far workup is unremarkable with negative troponins and EKG without ST-T wave changes concerning for ischemia. If second part of stress test is without ischemia patient we discharge this afternoon with follow-up with PCP 05/03--presented with chest pain. Risk factors include CAD, HTN, HDL and obesity. Abnormal stress test yesterday with reversible perfusion defect in the mid anterior. Cardiology following a recommend [facility]. Proceed with C in the morning. Nothing by mouth after midnight. Patient will need to be premedicated given IVP dye allergy. (2) Hx of breast cancer Current Visit: Yes Status: Chronic Assessment and Plan: f/u as outpt with oncologist per regular schedule (3) HTN (hypertension) Current Visit: No Status: Chronic Assessment and Plan: BP controlled Continue to monitor closely Continue home anti-HTN meds (4) Depression Current Visit: No Status: Chronic Assessment and Plan: Continue antidepressant (5) Lung nodule Current Visit: Yes Status: Chronic Assessment and Plan: Is having close outpatient follow-up at [facility] With history of cancer encouraged to continue close follow-up 05/03--discussed with the patient that if she were to have LHC and require stenting should be on Plavix and would be unable to have biopsy of lung nodule for 90 days. (6) DVT prophylaxis Current Visit: Yes Status: Acute Assessment and Plan: Continue SC Heparin - Time Spent with Patient Total time spent is greater than 50% in coordination of care (as documented) at patient's floor/unit and/or counseling patient: less than 15 minutes Plan of Care Discussed with: patient Internal Medicine: Result - Labs CBC & Chem 7: 05/01/18 03:44 05/01/18 03:44 - ABG Interpretation ABG results: PT/INR, D-dimer PT 10.6 Seconds (9.4-12.1) 04/30/18 15:06 D-Dimer 490 ng/mLFEU (0-500) 04/30/18 15:06 Consult Discharge Plan - Plan Referrals: Dane Ybarra [Primary Care Provider] - 05/07/18 11:15 am (1) Chest pain Qualifiers: Chest pain type: unspecified Qualified Code(s): R07.9 - Chest pain, unspecified (3) HTN (hypertension) Qualifiers: Hypertension type: essential hypertension Qualified Code(s): I10 - Essential (primary) hypertension (4) Depression Qualifiers: Depression Type: major depressive disorder Active/Remission status: remission status unspecified Qualified Code(s): F32.9 - Major depressive disorder, single episode, unspecified
[2018-05-03] MEDS: predniSONE 20 MG TABLET PO SCH (17:15)
[2018-05-03] MEDS: traZODone 50 MG TABLET PO SCH (20:03)
[2018-05-03] MEDS: Cholecalciferol (D-3) 1,000 UNIT TABLET PO SCH (20:04)
[2018-05-03] MEDS: Metoprolol XL (24 HR) Succ 25 MG TAB.ER.24H PO SCH (20:04)
[2018-05-04] MEDS: *HR* Heparin 5,000 UNIT/ML VIAL SQ SCH ×2 (05:37→17:25)
[2018-05-04] MEDS: predniSONE 20 MG TABLET PO SCH (07:12)
[2018-05-04] MEDS ORDERED: Aspirin 81 MG TAB.CHEW PO SCH (09:00)
--- NOTE | 2018-05-04 11:17 | Internal Med Progress Note ---
Hospitalist Progress Note - Encounter Date of Encounter: 05/04/18 Time of Encounter: 11:14 - Subjective Interval History: Reported an an additional episode of midsternal chest pain described as dull lasting approximately 5-10 seconds. She is anxious regarding LHC this afternoon. - Exam Vitals: Temp Pulse Resp BP Pulse Ox 97.4 F L 59 16 126/76 95 05/04/18 07:23 05/04/18 07:23 05/04/18 07:23 05/04/18 07:23 05/04/18 07:23 Exam: PHYSICAL EXAMINATION: GENERAL APPEARANCE: A and O 3, NAD HEENT: Head is normocephalic and atraumatic, EOMI, PERRLA NECK: Supple without lymphadenopathy HEART: Regular rate and rhythm, S1, S2 no murmurs rubs or gallops. LUNGS: CTA AP and L without wheezes, rales or rhonchi ABDOMEN: Soft, nontender, nondistended, NABS EXTREMITIES: Without cyanosis, clubbing or edema. NEUROLOGICAL: Grossly nonfocal. SKIN: Warm and dry without rash. - Assessment and Plan (1) Chest pain Current Visit: Yes Status: Resolved Assessment and Plan: 05/03--the patient presented with chest pain. Risk factors include CAD, HTN, HD L and obesity. A stress test was completed and found to be abnormal. There were findings of the mid anterior reversible perfusion defect. Plan for LHC this afternoon. Patient being pretreated due to IVP dye allergy. She has had return of chest pain over the last 2 nights lasting approximately 5-10 seconds described as dull. However, there have been no events on telemetry. (2) Hx of breast cancer Current Visit: Yes Status: Chronic Assessment and Plan: f/u as outpt with oncologist in [place] per regular schedule (3) HTN (hypertension) Current Visit: No Status: Chronic Assessment and Plan: BP controlled Continue to monitor closely Continue home anti-HTN meds (4) Depression Current Visit: No Status: Chronic Assessment and Plan: Continue antidepressant (5) Lung nodule Current Visit: Yes Status: Chronic Assessment and Plan: Is having close outpatient follow-up at [facility] With history of cancer encouraged to continue close follow-up 05/03--discussed with the patient that if she were to have LHC and require stenting should be on Plavix and would be unable to have biopsy of lung nodule for 90 days. 05/04--again discussed that should the patient required a stent that she would need to be on Plavix for approximately 90 days and that she would be unable to withhold a dose of Plavix for at least this long. She does have a lung nodule that needs biopsy. (6) DVT prophylaxis Current Visit: Yes Status: Acute Assessment and Plan: Continue SC Heparin - Time Spent with Patient Total time spent is greater than 50% in coordination of care (as documented) at patient's floor/unit and/or counseling patient: less than 15 minutes Plan of Care Discussed with: patient Internal Medicine: Result - Labs CBC & Chem 7: 05/01/18 03:44 05/01/18 03:44 - ABG Interpretation ABG results: PT/INR, D-dimer PT 10.6 Seconds (9.4-12.1) 04/30/18 15:06 D-Dimer 490 ng/mLFEU (0-500) 04/30/18 15:06 Consult Discharge Plan - Plan Referrals: Dane Ybarra [Primary Care Provider] - 05/07/18 11:15 am (1) Chest pain Qualifiers: Chest pain type: unspecified Qualified Code(s): R07.9 - Chest pain, u nspecified (3) HTN (hypertension) Qualifiers: Hypertension type: essential hypertension Qualified Code(s): I10 - Essential (primary) hypertension (4) Depression Qualifiers: Depression Type: major depressive disorder Active/Remission status: remission status unspecified Qualified Code(s): F32.9 - Major depressive disorder, single episode, unspecified
[2018-05-04] MEDS ORDERED: Heparin 1,000 UNITS/500 mL 500 ML ONE (13:33)
[2018-05-04] MEDS ORDERED: *HR* Heparin 10,000 UNIT/10 ML VIAL ONE (13:33)
[2018-05-04] MEDS ORDERED: 0.9 % Sodium Chloride 1,000 ML ONE ×3 (13:33→15:00)
[2018-05-04] MEDS ORDERED: Nitroglycerin 1,000 MCG/10 ML VIAL IV ONE (13:33)
[2018-05-04] MEDS ORDERED: *HR* Midazolam HCl 2 MG/2 ML VIAL ONE ×2 (14:16→14:30)
--- NOTE | 2018-05-04 14:17 | Pre-Sedation Evaluation ---
Pre-sedation evaluation - Pre-sedation checklist Date of procedure: 05/04/18 Procedure: left heart cath Recent Vitals: Last Vital Signs Temp 97.6 F 05/04/18 11:26 Pulse 64 05/04/18 11:26 Resp 16 05/04/18 11:26 BP 138/79 05/04/18 11:26 Pulse Ox 94 05/04/18 11:26 H&P (including ROS) documented in medical record: Yes Previous reaction to sedatives/anesthetics: No Dietary Status: NPO after Midnight Airway Assessment: Patient can open mouth completely, TMJ function normal Dentition: dentures removed Possible difficult airway: No ASA Classification *see protocol: CLASS III-Severe systemic disease Cardiac Registry (Cardio Only) - Functional Capacity Functional Capacity: >=4 METS without symptoms - Clincal Frailty Scale Clinical Frailty Scale: Managing Well
--- NOTE | 2018-05-04 14:44 | Event Note ---
Date of Encounter: 05/04/18 Time of Encounter: 14:43 - Cardiology Event Note Left heart cath: Normal coronaries, normal LV, EF 55% Pt is at low cardiovascular risk to proceed with planned biopsy. Rajendra Morales DO, FACC, FACOI
[2018-05-04] MEDS ORDERED: 0.9 % Sodium Chloride 1,000 ML IVC SCH (14:45)
--- NOTE | 2018-05-04 15:10 | Invasive Diagnostic Lab Proc ---
Name: Awilda Patel Date of Study: 05/04/2018 Date: 1950 Ht: 68.1in Medical Record#: [id number] Age: 67 Wt: 244.71lb Gender: Female BSA: 2.23 Order #: [id number] BMI: 37.09 Physicians Procedure Physician: Rajendra Morales DO Referring MD: Referring MD: Staff Name Position Time In GeovannaMaddy RN Monitor 02:20 PM Minerva Good RN Basket Hand Weaver 02:20 PM Steph Tapia RT (R) Scrub 02:20 PM Indications Indication Abnormal Test - Stress Procedures Performed Procedure L HRT ARTERY/VENTRICLE ANGIO Pre-Procedure Checklist Informed consent is complete signed and on chart. H&P is on chart. ID band is on and ID verified with patient. Patient NPO for procedure The procedure was described for the patient and questions were answered. ECG is on chart. Plan of Care Patient will tolerate the procedure without complications. Adequate level of comfort will be maintained. Hemodynamics will remain stable Patient will recover from procedure without complications. Respiratory function will be maintained. Cardiac rhythm will remain stable. Patient temperature will be maintained. Patient and/or family have verbalized understanding of the procedure. Patient Education Chief Complaint/Reason for Test: Cardiac Cath Developmental Category: Geriatric (65+ years) Developmentally Appropriate for Age: Yes Learning Barriers: None Education Needs: Plan of Care Education Method: Verbal Information Taught: Cardiac Cath Educational Evaluation: Able to repeat information Intravenous Access Time IV Size Location DC'd Fluid/Drip Rate Units RN 01:33 PM 20g 1 1/4" Patent On Arrival Rt Arm Allergies Iodinated Contrast- Oral and IV Dye adhesive tape Vital Signs Time BP (mmHg) HR (bpm) O2 Sat. RR (bpm) LOC 02:21 PM / % 5 = Fully awake and oriented or at pre-proc level 02:21 PM / % 4 = Oriented but drowsy 02:16 PM 155 / 85 74 99 % 6 02:21 PM 158 / 80 75 100 % 14 02:26 PM 156 / 80 78 97 % 17 02:31 PM 145 / 81 75 97 % 19 02:36 PM 147 / 78 78 94 % 23 02:36 PM / % 4 = Oriented but drowsy Procedural Medications Time Medication Dose Units Method Given By 02:21 PM Oxygen 2 L/min nasal cannula Minerva Good RN 02:21 PM Versed 2 mg Intravenous Minerva Good RN 02:30 PM Versed 1 mg Intravenous Minerva Good RN 02:31 PM Lidocaine 2% 10 ml Subcutaneous Rajendra Morales DO ASA Classification: CLASS III- Severe systemic disease (i.e. prior AMI, diabetes with vascular complications, morbid obesity) Alexa Score Preprocedure Postprocedure Activity 2- Moves 4 extremities sustained head lift Activity 2- Moves 4 extremities sustained head lift Circulation 2- SBP +/= 20 points of pre-anesthetic level Circulation 2- SBP +/= 20 points of pre-anesthetic level Consciousness 2- Awake and alert oriented x 3 Consciousness 2- Awake and alert oriented x 3 O2 Saturation 2- Able to maintain O2 satruation of 92% on room air O2 Saturation 2- Able to maintain O2 satruation of 92% on room air Respiratory 2- Able to deep breathe and cough well Respiratory 2- Able to deep breathe and cough well Total Score 10 Total Score 10 Contrast Agent: Isovue Diagnostic Contrast: 45 ml Total Contrast: 45 ml Fluoro Dose: 22 mGy Procedure Log Time Note Enter By 02:15 PM Case Start 02:15 PM CathStat 02:15 PM Vitals capture started with the following parameters, Patient=Adult, Interval=5 min, Initial Nkxrcnlt=840 mmHg, Deflation Rate=3 mmHg, Cuff placed on Right Arm 02:16 PM HR=74 bpm, SFEH=356/85 mmhg, SpO2=99.0 %, Resp=6 B/min, Comment=nsr 02:20 PM Pt arrived to company laborer 1 at 14:20 02:20 PM Maddy Austin RN Position: Monitor Time in: 14:20 02:20 PM Minerva Good RN Position: Basket Hand Weaver Time in: 14:20 02:20 PM Steph Tapia RT (R) Position: Scrub Time in: 14:20 02:20 PM Patient charges- Angio tray pack, Navilyst 3mm J, Pulse Oximetry and ACIST tubing and transducer 02:20 PM Physician arrived 14:20 02:20 PM Meet and greet completed 02:20 PM Sign in performed according to hospital policy. Informed consent was obtained. 02:20 PM Procedure start 14:20 [facility] : PM Time: 14:21 Oxygen on at 2 L/min per nasal cannula [facility] PM Time: 14:21 Patient comfortable and pain free: Yes : PM Time: 14:21LOC: 5 = Fully awake and oriented or at pre-proc level [facility] : PM HR=75 bpm, UYMZ=447/80 mmhg, MvI9=565.0 %, Resp=14 B/min, EtCO2=34 mmHg, Comment=nsr 02: PM Hair removed from procedure site in procedure lab using clippers. Bilateral groin prepped with Chloraprep by Maddy Austin RN, then patient was draped. Skin intact. [facility] : PM Time: 14: Versed 2 mg Intravenous Given by [facility]erv[facility]: PM Recorded ECG: HR=78 Condition=Condition 1 02:26 PM HR=78 bpm, TQAW=744/80 mmhg, SpO2=97.0 %, Resp=17 B/min, EtCO2=32 mmHg, Comment=nsr 02:27 PM Pressure channel 2 zeroed. 02:28 PM Recorded ECG: HR=76 Condition=Condition 1 02:29 PM ASA Class CLASS III- Severe systemic disease (i.e. prior AMI, diabetes with vascular complications, morbid obesity) [facility] 02: PM Time: 14:30 Versed 1 mg Intravenous Given by Minerva Good RN [facility] 02:30 PM Time out was performed according to hospital policy. Conscious sedation and anesthesia was achieved (see medication log with in this report above) : PM HR=75 bpm, XEKY=691/81 mmhg, SpO2=97.0 %, Resp=19 B/min, EtCO2=32 mmHg, Comment=nsr : PM Time: 14:31 10 ml Lidocaine 2% to right groin Subcutaneous Given by Rajendra Morales DO [facility] 02: PM Micro-Introducer Kit utilized for sheath placement [facility] 02:33 PM Access obtained by percutaneous puncture. 6Fr 10cm Terumo [place] sheath placed in right Femoral artery. [id number] tsoummers 02:33 PM 0.035 145cm Navilyst 3mmJ wire [id number] oummers 02:33 PM 6Fr FR 4 catheter inserted over the wire [facility] tsoummers 02:33 PM Catheter crossed the aortic valve and was selectively placed in the left ventricle. Pressures recorded on pullback for left heart catheterization. tsoummers 02:33 PM wire removed tsoummers 02:33 PM Bolus angiogram of left Ventricle complete: hand injection tsoummers 02:34 PM Recorded Pressure: LV, HR=80, Condition=Condition 1 (Left Ventricle) LV 147/0/3 02:34 PM Recorded Pressure: LV, Ao, HR=81, Condition=Condition 1 (Left Ventricle) LV 135/-1/0, (Aorta) Ao 113/53/81 02:35 PM Recorded Pressure: Ao, HR=80, Condition=Condition 1 (Aorta) Ao 103/57/74 02:35 PM RCA angiography performed in multiple views. oumm 02:35 PM Coronary Dominance: right tsoummers 02:35 PM Catheter removed 02:35 PM 6Fr FL 4 catheter inserted over the wire [facility] tsoumm 02:36 PM Time: 14:21LOC: 4 = Oriented but drowsy tsoummers 02:36 PM HR=78 bpm, IWGS=228/78 mmhg, SpO2=94.0 %, Resp=23 B/min, EtCO2=33 mmHg, Comment=nsr 02:36 PM Time: 14:21 Patient comfortable and pain free: Yes oummers 02:36 PM LCA angiography performed in multiple views. tsoummers 02:36 PM Recorded Pressure: Ao, HR=79, Condition=Condition 1 (Aorta) Ao 124/65/89 02:37 PM Catheter removed tsoumm 02:37 PM Bolus angiogram of right Femoral complete: hand injection tsoummers 02:37 PM Procedure completed at 14:37 05/04/2018 tsoummers 02:37 PM Did you address SHE flow and Dominance? Yes tsoummers 02:38 PM Sign out completed: Radiation Dose 161.55 mGy, 22.2324 Gy/cm2 Fluoro Time: 1.1 Isovue 370 - 200ml contrast 45 ml given by Rajendra Morales DO. Complications: None. The patient was discharged out of the research laboratory specialist in stable condition. Cardiac Rehab Consult needed: NoConfirmed administered medications: Yes tsoummers 02:38 PM Isovue 370 - 200ml,1 Bottle(s) used. tsoummers 02:38 PM Estimated Blood Loss: minimal tsoummers 02:39 PM Post ECG NSR tsoummers 02:39 PM Post Blood Pressure 147/78 tsoummers 02:39 PM Information taught Cardiac Cath tsoummers 02:40 PM Education needs Procedure, Plan of Care, and Responsibilities of Patient in Care tsoummers 02:40 PM Learning barriers :None tsoummers 02:40 PM Education Methods Verbal tsoummers 02:40 PM Education evaluation Able to repeat information tsoummers 02:40 PM Plavix, Effient or Brilinta given No tsoummers 02:40 PM Delay to floor No tsoummers 02:40 PM Family placed in consult room. tsoummers 02:40 PM Complications: None tsoummers 02:45 PM Report given to Radha CELESTIN Pt taken to 3B Room #45. 14:45 tsoummers 02:47 PM Arterial sheath pulled using manual compression and V+ Pad for 15 minutes by Minerva Good RN tsmmjoshua 02:53 PM Time: 14:36 Patient comfortable and pain free: Yes tsoummers 02:53 PM Time: 14:36LOC: 4 = Oriented but drowsy tsoummjoshua 03:02 PM Site status No bleeding/hematoma - Rt Groin as reported by Minerva Good RN at 15:02 sherita 03:02 PM Opsite applied [email or web address] 03:02 PM [facility]: [facility] Com[facility] Complication None Hemodynamics Pressures Site Systolic/A Wave Diastolic/V Wave Mean LV 147 0 3 LV 135 -1 0 AO 113 53 81 AO 103 57 74 AO 124 65 89 Post Procedure Information Blood Pressure: 147/78 mmHg Rhythm: NSR Post procedural instructions were given Closure Device Time Device Success/Fail 05/04/2018 2:47:00 PM Manual Compression Successful Site Checks Time Location Status Staff Sheath In? Note 03:02 PM Rt Groin No bleeding/hematoma Minerva Good RN Pulses Time Site Pre-Procedure Post-Procedure Note 05/04/2018 1:33:00 PM Bilateral DP & PT 2+ Updated by Maddy Austin RN on 05/04/2018 3:03:18 PM electronically signed on 05/04/2018 3:03:42 PM with status of Final
--- NOTE | 2018-05-04 17:52 | Discharge Summary ---
- NOTES TO OUTPATIENT PROVIDER Notes to Outpatient Provider: no pending studies. Presented with chest pain and underwent ACS rule out. ECG negative for ischemia, serial troponins negative 3. Stress test abnormal. Left heart catheter completed with normal coronaries. Negative for acute coronary syndrome. Being discharged instructed to follow-up with PCP within one week. Orders not resulted at time of discharge: Pending orders 04/30/18 17:29 NM kristy perf SPECT multi [NM] Routine Date of Encounter: 05/04/18 Time of Encounter: 17:50 - Discharge Diagnosis (1) Chest pain Priority: Primary Status: Resolved Assessment and Plan: 05/03--the patient presented with chest pain. Risk factors include CAD, HTN, HDL and obesity. A stress test was completed and found to be abnormal. There were findings of the mid anterior reversible perfusion defect. Plan for LHC this afternoon. Patient being pretreated due to IVP dye allergy. She has had return of chest pain over the last 2 nights lasting approximately 5-10 seconds described as dull. However, there have been no events on telemetry. Qualifiers: Chest pain type: unspecified Qualified Code(s): R07.9 - Chest pain, unspecified (2) Hx of breast cancer Priority: Secondary Status: Chronic Assessment and Plan: f/u as outpt with oncologist in [place] per regular schedule (3) HTN (hypertension) Priority: Secondary Status: Chronic Assessment and Plan: BP controlled Continue to monitor closely Continue home anti-HTN meds Qualifiers: Hypertension type: essential hypertension Qualified Code(s): I10 - Essential (primary) hypertension (4) Depression Priority: Secondary Status: Chronic Assessment and Plan: Continue antidepressant Qualifiers: Depression Type: major depressive disorder Active/Remission status: remission status unspecified Qualified Code(s): F32.9 - Major depressive disorder, single episode, unspecified (5) Lung nodule Priority: Secondary Status: Chronic Assessment and Plan: Is having close outpatient follow-up at [facility] With history of cancer encouraged to continue close follow-up 05/03--discussed with the patient that if she were to have LHC and require stenting should be on Plavix and would be unable to have biopsy of lung nodule for 90 days. 05/04--again discussed that should the patient required a stent that she would need to be on Plavix for approximately 90 days and that she would be unable to withhold a dose of Plavix for at least this long. She does have a lung nodule that needs biopsy. (6) DVT prophylaxis Priority: Secondary Status: Acute Assessment and Plan: Continue [place] Heparin Hospital course: Ms. Patel is a 67 year old female no pending studies. Presented with chest pain and underwent ACS rule out. ECG negative for ischemia, serial troponins negative 3. Stress test abnormal. Left heart catheter completed with normal coronaries. Negative for acute coronary syndrome. Being discharged instructed to follow-up with PCP within one week. Discharge discussed with: patient, nurse - Time Spent with Patient Total time spent providing and/or coordinating discharge services: Less than 30 minutes - Discharge Medications Home Medications: Cholecalciferol (D-3) [Vitamin D] 3,000 unit PO HS 04/30/18 [History] HydrOXYzine 25 mg PO HS 04/30/18 [History] Sertraline [Zoloft] 50 mg PO HS 04/30/18 [History] Clotrimazole/Betameth Dip CRM [Lotrisone CRM] 1 appl TP DAILY PRN 05/02/18 [History] Metoprolol Tartrate 50 mg PO HS 05/02/18 [History] Simvastatin [Zocor] 20 mg PO HS 05/02/18 [History] Trazodone HCl 200 mg PO HS 05/02/18 [History] Allergies/Adverse Reactions: Allergy/AdvReac Type Severity Reaction Status Date / Time adhesive tape AdvReac See Verified 05/02/18 13:05 Comments Iodinated Contrast- Oral and AdvReac See Verified 05/02/18 13:05 IV Dye Comments Date of admission: 04/30/18 17:33 Primary care physician: Dane Ybarra Consults: 05/02/18 12:44 Consult to Cardiology [CONS] Routine Comment: Consulting Provider: Cardiology Leana Reason for Consult: abnormal stress Time Notified: 12:44 Call Completed: Yes Discharging clinician: Loco Gomes Anticipated date of discharge: 05/04/18 - Constitutional Vitals: Temp Pulse Resp BP Pulse Ox 98.2 F 68 18 127/86 95 05/04/18 15:13 05/04/18 16:57 05/04/18 16:57 05/04/18 16:57 05/04/18 16:57 General appearance: Present: cooperative, A&O X 3, answers questions appropriately Exam: PHYSICAL EXAMINATION: GENERAL APPEARANCE: A and O 3, NAD HEENT: Head is normocephalic and atraumatic, EOMI, PERRLA NECK: Supple without lymphadenopathy HEART: Regular rate and rhythm, S1, S2 no murmurs rubs or gallops. LUNGS: CTA AP and L without wheezes, rales or rhonchi ABDOMEN: Soft, nontender, nondistended, NABS EXTREMITIES: Without cyanosis, clubbing or edema. NEUROLOGICAL: Grossly nonfocal. SKIN: Warm and dry without rash. - Patient Status Disposition: Home, Self-Care Condition: Good Functional capacity at discharge: independent ambulation Overall status at discharge: patient is back to baseline - Discharge Instructions Instructions: Chest Pain (DC) Follow Up With: Dane Ybarra [Primary Care Provider] - 05/07/18 11:15 am - Diet and Activity Activity: increase activity as tolerated, resume usual activities as tolerated Diet: diabetic diet, low fat, low cholesterol, low salt diet
[2018-05-04 18:51] VITALS: BP 127/76
== END 2018-05-04 19:13 | disposition home or self-care (01) ==
LOC: EDBD → 3BNU 14:43 → EMEROOARM 14:43 → MERGE 17:33 → 3BNU 18:30
PROVIDERS: ADMIT Internal Medicine; ATTEND Internal Medicine